=== PATIENT | male | born 1955 | race African-American/Black ===

== ENCOUNTER 2020-01-15 15:27 | Emergency (ER) | payer MEDICAID ==
[~2020-01-15] VITALS: Ht 175.3 cm; Wt 71.2 kg
--- NOTE | 2020-01-15 15:27 | NUR ---
ED Nurse Note: PT walked in to ED for C.O hematuria x 4 days. denies pain or discomfort during urination.
[2020-01-15 15:28] VITALS: BP 123/74
[2020-01-15] MEDS ORDERED: Omnipaque-300 100ml vial INJ PRN (16:00)
[2020-01-15 16:10] LABS: APPEARANCE,URINE CLEAR; BILIRUBIN, URINE NEGATIVE (NEGATIVE); COLOR,URINE YELLOW; GLUCOSE, URINE (UA) 4+ (NEGATIVE); KETONES,URINE 1+ (NEGATIVE); LEUKOCYTE ESTERASE ,URINE 1+ (NEGATIVE); NITRITE,URINE NEGATIVE (NEGATIVE); PH,URINE 5 (4.5-8.0); PROTEIN,URINE 2+ (NEGATIVE); UROBILINOGEN,URINE NORMAL MG/DL (0.0-1.0)
[2020-01-15 17:19] LABS: ANION GAP 6 mmol/L (5-15); BLOOD UREA NITROGEN 17 mg/dL (7-18); CALCIUM 9.4 MG/DL (8.5-10.1); CARBON DIOXIDE 32 MMOL/L (21-32); CHLORIDE 109 MMOL/L (98-107); CREATININE 0.8 MG/DL (0.55-1.30); POTASSIUM 3.8 MMOL/L (3.5-5.1); SODIUM 147 MMOL/L (136-145)
[2020-01-15 17:23] LABS: ALANINE AMINOTRANSFERASE 33 U/L (12-78); ALBUMIN 3.9 G/DL (3.4-5.0); ALBUMIN/GLOBULIN RATIO 1.1 (1.0-2.7); ALKALINE PHOSPHATASE 86 U/L (46-116); ASPARTATE AMINO TRANSFERASE 26 U/L (15-37); BILIRUBIN,TOTAL 0.8 MG/DL (0.2-1.0)
[2020-01-15 17:28] LABS: BASOPHILS % (AUTO) 1.9 % (0.0-2.0); EOSINOPHILS % (AUTO) 3.1 % (0.0-3.0); HEMATOCRIT 38.2 % (42.0-52.0); HEMOGLOBIN 12.6 G/DL (14.2-18.0); LYMPHOCYTES % (AUTO) 22.6 % (20.0-45.0); MEAN CORPUSCULAR VOLUME 93 FL (80-99); MONOCYTES % (AUTO) 5.9 % (1.0-10.0); NEUTROPHILS % (AUTO) 66.6 % (45.0-75.0); PLATELET COUNT 208 K/UL (150-450); WHITE BLOOD COUNT 4.6 K/UL (4.8-10.8)
--- NOTE | 2020-01-15 17:39 | Emergency Room Report ---
History of Present Illness General Chief Complaint: Male Urogenital Problems Source: Patient (Valentin Canchola) Present Illness HPI 64-year-old male here with son, reporting he has history of hypertension, acid reflux, and bladder pressure which is currently taking tamsulosin for. Complains of waking up this morning with hematuria. Denies dysuria and urinary frequency. Denies fever and chills, URI symptoms, flank pain. Also complaining of epigastric pain that is been ongoing for several months. Denies a smoking history. Has not taken medication for symptom relief. Sitting comfortably with stable vital signs. COVID-19 risk:Contact w/high r: No COVID-19 risk:Travel to affect: No Has patient experienced combs: No (Valentin Canchola) Allergies: Coded Allergies: No Known Allergies (Unverified , 01/15/20) Patient History Limited by: language barrier Past Medical History: see triage record Past Surgical History: none Pertinent Family History: none Immunizations: UTD Reviewed Nursing Documentation: PMH: Agreed; PSxH: Agreed (Valentin Canchola) Nursing Documentation-PMH Past Medical History: No History, Except For Hx Hypertension: Yes Hx Diabetes: Yes (Valentin Canchola) Review of Systems All Other Systems: negative except mentioned in HPI (Valentin Canchola) Physical Exam Vital Signs Date Time Temp Pulse Resp B/P (MAP) Pulse Ox O2 Delivery O2 Flow Rate FiO2 01/15/20 15:24 98.4 100 20 123/74 (90) Room Air Sp02 EP Interpretation: reviewed, normal General Appearance: no apparent distress, alert, GCS 15, non-toxic Head: normocephalic, atraumatic Eyes: bilateral eye normal inspection, bilateral eye PERRL ENT: hearing grossly normal, normal pharynx, no angioedema, normal voice Neck: full range of motion, supple/symm/no masses Respiratory: chest non-tender, lungs clear, normal breath sounds, no rhonchi, no wheezing, speaking full sentences Cardiovascular #1: regular rate, rhythm, no edema, no murmur Gastrointestinal: normal bowel sounds, non tender, soft, non-distended, no guarding, no rebound Rectal: deferred Genitourinary: no CVA tenderness Musculoskeletal: back normal Neurologic: alert, motor strength/tone normal, oriented x3, sensory intact, responsive, speech normal Psychiatric: judgement/insight normal, memory normal, mood/affect normal, no suicidal/homicidal ideation Skin: no rash Lymphatic: no adenopathy (Valentin Canchola) Medical Decision Making PA Attestation All my diagnosis and treatment plans were reviewed ad discussed with my supervising physician Dr. Hutchins (Valentin Canchola) Diagnostic Impression: Primary Impression: Hematuria Additional Impression: UTI (urinary tract infection) ER Course 64-year-old male here with son, reporting he has history of hypertension, acid reflux, and bladder pressure which is currently taking tamsulosin for. Complains of waking up this morning with hematuria. Denies dysuria and urinary frequency. Denies fever and chills, URI symptoms, flank pain. Also complaining of epigastric pain that is been ongoing for several months. Denies a smoking history. Has not taken medication for symptom relief. Sitting comfortably with stable vital signs. Ddx considered but are not limited to: UTI, pylonephritis, urinary incontinence , prolapsed bladder Vital signs: are WNL, pt. is afebrile H&PE are most consistent with: UTI and hematuria, incidental finding of a small hiatal hernia ORDERS: UA, urine cx, CBC, CMP, abdominal CT pelvis, Keflex ED INTERVENTIONS: NS bolus DISCHARGE: At this time pt. is stable for d/c to home. Will provide printed patient care instructions, and any necessary prescriptions. Care plan and follow up instructions have been discussed with the patient prior to discharge. Patient follow primary doctor as well as urologist as well as clerical administrative assistant as well as general surgeon for hiatal hernia. If worsening symptoms return to emergency room (Valentin Canchola) ER Course Spoke with son and father at 11:20 AM regarding incidental findings of potential intussusception or duodenal thickening, patient with no symptoms or signs of obstruction states he feels currently fine counseled son and father to follow-up with gastroenterology, colorectal surgery or general surgery for possible cancer evaluation or scope (Tanmay Linda MD) CT/MRI/US Diagnostic Results CT/MRI/US Diagnostic Results : Imaging Test Ordered: CT abdomen pelvis with contrast Impression Small hiatal hernia otherwise within normal limits (Valentin Canchola) Last Vital Signs Date Time Temp Pulse Resp B/P (MAP) Pulse Ox O2 Delivery O2 Flow Rate FiO2 01/15/20 15:28 98.4 98 20 123/74 Room Air (Valentin Canchola) Disposition: HOME, SELF-CARE Condition: Stable Scripts Cephalexin* (KEFLEX*) 500 Mg Capsule 500 MG ORAL EVERY 6 HOURS for 7 Days, #28 CAP Prov: Valentin Canchola 01/15/20 Patient Instructions: Hematuria, Adult, Urinary Tract Infection Additional Instructions: Take medication as directed, follow-up with primary care provider, you also need to be sent to urologist. If worsening symptoms return to the emergency room Valentin Canchola Jan 15, 2020 17:39 Tanmay Linda MD Jan 16, 2020 11:20
--- NOTE | 2020-01-15 18:44 | Diagnostic Imaging Report ---
INDICATION: Abdominal pain TECHNIQUE: Continuous helical transaxial imaging of the abdomen and pelvis was obtained from the lung bases to the pubic symphysis during intravenous contrast administration. Coronal 2-D reformats were also obtained. Study obtained in a Siemens sensation [address] Automatic Exposure Control was utilized. Total Dose length Product (DLP): 251.[address] Dose Index Volume (CTDIvol): 5.1 mGy COMPARISON: None FINDINGS: Lungs: Reticular densities are present at the lung bases. Some of this is atelectasis. There may be component of fibrosis. Small hiatal hernia is present.. Liver: Unremarkable Gallbladder/biliary system: Gallbladder is contracted. There is no biliary ductal dilatation appreciated.. Spleen: Unremarkable Pancreas: Unremarkable Kidneys/Bladder: There are bilateral renal cysts. There is no hydronephrosis. Bladder is unremarkable.. Adrenal glands: Both adrenal glands appear prominent but retain their adreniform shape. Aorta/IVC: There is moderate calcification of aorta and iliac arteries. Bowel: There are diverticula in the sigmoid colon. There are distended loops of small bowel present including the proximal jejunum and the duodenum. There is moderate thickening of the wall the duodenum and proximal jejunum present this appears to end in the right upper quadrant of the abdomen (e.g. image 32/axial series 4) with areas of focal dilatation of portion of the duodenum and the abrupt transition. The configuration is somewhat suggestive of a partial intussusception. Recommend further evaluation with repeat CT with oral contrast material and upper GI/small bowel series. Peritoneum: There is a small left inguinal hernia containing fat. There is no free fluid present. There is some prominence of the prostate gland. . 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 Grade 2 anterolisthesis present at L5-S1 with narrowing of intervertebral disc and vacuum phenomena. Bones are osteopenic. IMPRESSION: No findings to account for the given clinical presentation of hematuria. Unusual configuration involving a short segment of the jejunum with question of intussusception. Moderate wall thickening and dilatation involving the proximal jejunum to that point and third and fourth portions of the duodenum. Further evaluation is recommended. Please correlate clinically. Diverticulosis of the colon Mild basilar atelectasis and/or fibrosis Small hiatal hernia Small left inguinal hernia containing fat Atherosclerotic vascular disease. L5 spondylolysis. Grade 2 spondylolisthesis L5 on S1. There is a significant discrepancy with the preliminary reading by stat rad. There was no mention of the finding in the jejunum or duodenum. The final results were discussed with Dr. Tanmay Linda In the emergency department at 11:00 AM 01/16/[address] scanner at [facility] is accredited by the [employer] [place] [employer] and the scans are performed using dose optimization techniques as appropriate to a performed exam including Automatic Exposure control.
[2020-01-15] MEDS ORDERED: CEPHALEXIN500 MG ORAL (18:53)
[2020-01-15 19:16] VITALS: BP 136/78
--- NOTE | 2020-01-15 19:16 | NUR ---
ER DISCHARGE NOTE: Patient is cleared to be discharged per ERMD, pt is aox4, on room air, with stable vital signs. pt was given dc and prescription instructions, pt was able to verbalize understanding, pt id band and iv site removed without complications. pt is able to ambulate with steady gait. pt took all belongings.
== END 2020-01-15 19:16 | disposition home or self-care (01) ==
LOC: EDBD 15:27 → EMR 18:50
DX: R31.9 Hematuria, unspecified (principal); N39.0 Urinary tract infection, site not specified; E11.9 Type 2 diabetes mellitus without complications; I10 Essential (primary) hypertension
CPT/HCPCS: 36415; 74177; 80053; 81003; 85025; 96360; J7030; Q9967; Z7502; 99284